=== PATIENT | female | born 1935 | race Caucasian/White ===

== ENCOUNTER 2016-11-07 21:12 | Emergency (ER) | payer MEDICARE, OTHER ==
[2016-11-07 21:46] LABS: #Lymphocytes 0.3 thou/uL (1.20-3.40); #Monocytes 0.3 thou/uL (0.11-0.59); #Neutrophils 4.4 thou/uL (1.40-6.50); %Basophils 0.6 % (0.0-1.0); %Monocytes 5.4 % (0.0-10.0); Hematocrit 34.6 % (36.0-47.0)
[2016-11-07 22:00] LABS: ALT (SGPT) 30 U/L (0-55); AST (SGOT) 29 U/L (5-34); Alkaline Phosphatase 81 U/L (40-150); Anion Gap 23 mmol/L (10-20); BUN (Urea Nitrogen) 28 mg/dL (9.8-20.1); Bilirubin, Total 0.2 mg/dL (0.2-1.2); Calc. Creatinine Clearance 0 mL/min (70-130); Carbon Dioxide 15 mmol/L (23-31); Chloride 91 mmol/L (98-107); Estimated GFR-MDRD 32; Globulin 3.2 g/dL (2.4-3.5); Magnesium 1.8 mg/dL (1.6-2.6)
[2016-11-07 22:09] LABS: Bilirubin Negative (Negative); Blood, Urine Small (Negative); Glucose, Urine (Dipstick) >=1000 mg/dL (Negative); Ketone, Urine Negative (Negative); Nitrite Negative (Negative); Protein, Urine (Dipstick) 30 mg/dL (Neg-Trace); Urobilinogen 0.2 mg/dL (0.2-1.0)
[2016-11-07 22:20] LABS: Bacteria/HPF 1+ HPF (None Seen); RBC/HPF 0-3 HPF (0-3); Squamous Epithelial 0-3 HPF (0-3); Yeast-All Forms 1+ HPF (None Seen)
[2016-11-07 22:44] LABS: Base Excess -3.7 mEq/L (-2 - +2); O2 Content (venous) 13.2 VOL% (12.5-17.5); pH (venous) 7.4 (7.34-7.37)
[2016-11-07] MEDS ORDERED: Sodium Chloride 0.9% 100 ML ONE (23:14)
[2016-11-07] MEDS ORDERED: cefTRIAXone\\ROCEPHIN 1 GM VIAL ONE ×2 (23:14→23:16)
[2016-11-07 23:49] LABS: Lactic Acid - Sepsis 5.2 mmol/L (0.5-2.2)
--- NOTE | 2016-11-07 23:56 | RAD ---
PORTABLE CHEST 11/07/16 An AP portable film at 2138 is presented with no prior films available for comparison. The heart is mildly enlarged but there are no congestive changes. Calcification is seen in the aorti c arch. There is a little blunting and haziness in the left costophrenic angle and left base. I can not rule out an early infiltrate and tiny effusion here. The right lung is relatively clear. The tra tg is midline. IMPRESSION: 1. Cardiomegaly and arteriosclerosis. 2. Possible small left basilar infiltrate and effusion. POS: HOME
--- NOTE | 2016-11-08 01:34 | PICIS ---
[facility] EMERGENCY RECORD COMMUNICATIONS COMMUNICATIONS: Physician, contacted/paged at [phone], Reason for notification transfer and admission, Dr Alexis accepts. (SunNov 08, 2016 00:46 JPIP) Physician, contacted/paged at [phone], Reason for notification transfer and admission, Dr Baez accepts. (SunNov 08, 2016 01:12 JPIP) TRIAGE (SunNov 07, 2016 21:20 SDIS) TRIAGE NOTES: POLYURIA, "HI" BGL STARTING TODAY. DIABETIC TYPE 2. HAS NOT MISSED MEDS. (SunNov 07, 2016 21:20 SDIS) PATIENT: NAME: Gracie Cifuentes, AGE: 81, GENDER: female, : Sun1935, TIME OF GREET: SunNov 07, 2016 21:13, PREFERRED LANGUAGE: Sinhala, ETHNICITY: Not or , ECODE BILLING MAP: [facility], SSN: [id number], Zip Code: [address], KG WEIGHT: 49.9 (est.), PHONE: , , , PERSON ID: [id number], PAYMENT: [place] [employer], PCP: DO BEAL JOHN SCOTT. (SunNov 07, 2016 21:20 SDIS) COMPLAINT: HYPERGLYCEMIA. (SunNov 07, 2016 21:20 SDIS) ADMISSION: URGENCY: 3 Urgent, ADMISSION SOURCE: Home, TRANSPORT: Walk-in, BED: TRIAGE. (SunNov 07, 2016 21:20 SDIS) TRIAGE SCREENING: Patient denies suicidal ideation, Patient denies presence of domestic violence. (21:21 SDIS) LMP: LMP: Menopause. (21:21 SDIS) TREATMENTS IN PROGRESS: Treatments given Prehospital: METFORMIN,. (21:21 SDIS) PROVIDERS: TRIAGE NURSE: Isabel De Jesus RN. (SunNov 07, 2016 21:20 SDIS) VITAL SIGNS: Resp 18, (Non-Labored), Pain 0, Time 11/07/2016 21:19. (21:19 SDIS) PREVIOUS VISIT ALLERGIES: IBUPROFEN. (SunNov 07, 2016 21:20 SDIS) IBUPROFEN. (21:21 SDIS) KNOWN ALLERGIES ibuprofen CURRENT MEDICATIONS azithromycin: TABLET : Strength - 250 mg : ORAL Patient Dose: 1 tab(s) Oral once a day. (22:13 SDIS) predniSONE: TABLET : Strength - 50 mg : ORAL Patient Dose: 50 mg Oral once a day.X 5 DAYS. (22:15 SDIS) ALPRAZolam: TABLET : Strength - 0.5 mg : ORAL Patient Dose: 0.5 mg Oral 3 times a day. (22:17 SDIS) aspirin: TABLET : Strength - 81 mg : ORAL &a-1R&a+25V*p+0X*p9921T*c202B*c15G*c2P*p-0X&a-25V&a+1R Name: Gracie Cifuentes : 1935 F81 MedRec: [id number] AcctNum: [id number] Prepared: SunNov 08, 2016 01:29 by Interface Page 1 of 16 pMD [facility] EMERGENCY RECORD Patient Dose: 81 mg Oral once a day. (22:18 SDIS) Caltrate 600 + D: TABLET, CHEWABLE : Strength - 600 mg calcium (1,500 mg)-800 unit : ORAL Patient Dose: 1 tab(s) Oral 2 times a day. (22:18 SDIS) lisinopril: TABLET : Strength - 20 mg : ORAL Patient Dose: 20 mg Oral once a day. (22:20 SDIS) lovastatin: TABLET : Strength - 10 mg : ORAL Patient Dose: 10 mg Oral once a day (at bedtime). (22:20 SDIS) metFORMIN: TABLET : Strength - 500 mg : ORAL Patient Dose: 1 tab(s) Oral 2 times a day. (22:20 SDIS) cefdinir: CAPSULE : Strength - 300 mg : ORAL Patient Dose: 300 mg Oral 2 times a day. (22:36 SDIS) VITAL SIGNS VITAL SIGNS: Resp: 18 (Non-Labored), Pain: 0, Time: 11/07/2016 21:19. (21:19 SDIS) BP: 166/88, Pulse: 106, Temp: 97..9 (Oral), O2 sat: 88 on Room Air, Time: 11/07/2016 21:22. (21:22 SDIS) BP: 139/76, Pulse: 90, Resp: 22 (Non-Labored), O2 sat: 92 on 2L Oxygen, Time: 11/07/2016 22:15. (22:15 SDIS) O2 sat: 93 on 2L Oxygen, Time: 11/07/2016 21:30. (21:30 SDIS) BP: 137/69, Pulse: 92, Resp: 24 (Non-Labored), Temp: 98.3 (Oral), Pain: 0, O2 sat: 94 on 2L Oxygen, Time: 11/08/2016 00:45. (SunNov 08, 2016 00:45 SDIS) NURSING ASSESSMENT: CARDIOVASCULAR (22:21 SDIS) CONSTITUTIONAL: Patient arrives ambulatory, Gait steady, History obtained from patient, Patient appears comfortable, Patient cooperative, Patient alert, Oriented to person, place and time, Skin warm, Skin dry, Skin normal in color, Mucous membranes pink, Mucous membranes moist, Patient complains of HYPERGLYCEMIA, SEE TRIAGE NOTE BY THIS RN. DENIES N/V. DENIES PAIN. REPORTS "HI" READING AT HOME. PT REPORTS H/O FEVER AND RECENT DX OF BRONCHITIS, GIVEN ABX BY PCP. CARDIOVASCULAR: Cardiovascular assessment findings include heart rate, tachycardic, Heart sounds normal, S1, S2. RESPIRATORY/CHEST: Breath sounds clear, Respiratory assessment findings include respiratory effort easy, Respirations regular, Conversing normally, Neck and chest exam findings include trachea midline, Chest expansion equal, Chest movement symmetrical, Associated with fever, SEVERAL DAYS PRIOR. NURSING ASSESSMENT: FALL RISK (22:23 SDIS) FALL RISK: Fall risk assessment findings include: no history of &a-1R&a+25V*p+0X*t0235L*c202B*c15G*c2P*p-0X&a-25V&a+1R Name: Gracie Cifuentes : 1935 F81 MedRec: [id number] AcctNum: [id number] Prepared: SunNov 08, 2016 01:29 by Interface Page 2 of 16 pMD [facility] EMERGENCY RECORD falls (0), No bed rest greater than 2 days (0), No use of level of consciousness altering agents with mentation or cognitive changes (0), No change in blood pressure (0), No sensory deficits (0), No impaired mobility (0), No neurologic diagnosis (0), No elimination problems (0), No confusion (0), Total score 0, No risk for fall. NURSING ASSESSMENT: SKIN (22:23 SDIS) SKIN: Skin assessment findings include skin warm, Skin dry, Skin normal in color, Notes: CDI. NURSING PROCEDURE: BEDSIDE SIRS TESTING (SunNov 08, 2016 01:16 SDIS) SCORES: Heart Rate 55-109 (0), Temp range 96.8-101.1 (0), respiratory rate 12-24 (0), Latest WBC 3-14.9 (0), Mental Status altered: no (0), Total SIRS Score 0. NURSING PROCEDURE: BEDSIDE TESTING PATIENT IDENTIFIER: Patient actively involved in identification process, Patient's identity verified by patient stating name, Patient's identity verified by patient stating date, Patient's identity verified by hospital ID bracelet. (21:30 SDIS) Patient actively involved in identification process, Patient's identity verified by patient stating name, Patient's identity verified by patient stating date, Patient's identity verified by hospital ID bracelet. (22:34 SDIS) Patient actively involved in identification process, Patient's identity verified by patient stating name, Patient's identity verified by patient stating date, Patient's identity verified by hospital ID bracelet. (23:32 SDIS) GLUCOSE: Glucose testing indicated for diabetic patient, Glucose testing indicated for hyperglycemia, Venous blood sample, Result (mg/dl) HI. (21:30 SDIS) Glucose testing indicated for diabetic patient, Glucose testing indicated for hyperglycemia, Venous blood sample, Result (mg/dl) 468. (22:34 SDIS) Glucose testing indicated for diabetic patient, Glucose testing indicated for hyperglycemia, Venous blood sample, Result (mg/dl) 370. (23:32 SDIS) FOLLOW-UP: After procedure, results given to Dr. MARSH. (21:30 SDIS) After procedure, results given to Dr. MARSH. (22:34 SDIS) After procedure, results given to Dr. MARSH. (23:32 SDIS) NURSING PROCEDURE: INTERIOR PANELER (21:23 SDIS) INTERIOR PANELER: Patient placed on teletypesetter monitor, Patient placed on non-invasive blood pressure monitor, with disposable blood pressure cuff applied, Patient placed on continuous pulse oximetry, Adult/pediatric oxisensor applied. NURSING PROCEDURE: IV (21:29 SDIS) &a-1R&a+25V*p+0X*d6972M*c202B*c15G*c2P*p-0X&a-25V&a+1R Name: Gracie Cifuentes : 1935 F81 MedRec: [id number] AcctNum: [id number] Prepared: SunNov 08, 2016 01:29 by Interface Page 3 of 16 [facility] EMERGENCY RECORD IV SITE 1: IV established, to the left antecubital, using an 18 gauge catheter, in one attempt, IV site prepped with CHLOROPREP, Saline lock established, Labs drawn at time of placement, labeled in the presence of the patient and sent to lab. SAFETY: Side rails up, Cart/Stretcher in lowest position, Call light within reach, Hospital ID band on. NURSING PROCEDURE: OXYGEN THERAPY (21:23 SDIS) OXYGEN THERAPY: 2L oxygen given, via nasal cannula applied, Applied by JOSEFINA. ORDER DETAILS Order Name: B type Natriuretic Peptide, Status: Active, Time: 22:38 11/07/2016, User: OSCAR, - Ordered for: DO Marsh Joseph, - Entered by: DO Marsh Joseph - Tue Nov 07, 2016 22:38, - Quantity: 1, Order Name: Basic Metabolic Panel, Status: Active, Time: 21:34 11/07/2016, User: OSCAR, - Ordered for: DO Marsh Joseph, - Entered by: DO Marsh Joseph - Tue Nov 07, 2016 21:34, - Quantity: 1, Order Name: BLOOD GLUCOSE MONITOR, Status: Done, Time: 21:31 11/07/2016, User: PERFECTO, - Ordered for: DO Marsh Joseph, - Entered by: DO Marsh Joseph - Tue Nov 07, 2016 21:22, - Quantity: 1, Order Name: INTERIOR PANELER ED, Status: Done, Time: 21:51 11/07/2016, User: PERFECTO, - Ordered for: DO Marsh Joseph, - Entered by: DO Marsh Joseph - Tue Nov 07, 2016 21:34, - Quantity: 1, Order Name: Cardiac Profile w/CKMB & Troponin - I, Status: Active, Time: 21:34 11/07/2016, User: OSCAR, - Ordered for: DO Marsh Joseph, - Entered by: DO Marsh Joseph - Tue Nov 07, 2016 21:34, - Quantity: 1, Order Name: CBC with Differential, Status: Active, Time: 21:34 11/07/2016, User: OSCAR, - Ordered for: DO Marsh Joseph, - Entered by: DO Marsh Joseph - Tue Nov 07, 2016 21:34, - Quantity: 1, Order Name: Comprehensive Metabolic Panel, Status: Active, Time: 21:34 11/07/2016, User: OSCAR, - Ordered for: DO Marsh Joseph, - Entered by: DO Marsh Joseph - Tue Nov 07, 2016 21:34, - Quantity: 1, Order Name: Culture, Blood, Status: Active, Time: 22:48 11/07/2016, User: OSCAR, &a-1R&a+25V*p+0X*z3276V*c202B*c15G*c2P*p-0X&a-25V&a+1R Name: Gracie Cifuentes : 1935 F81 MedRec: [id number] AcctNum: [id number] Prepared: SunNov 08, 2016 01:29 by Interface Page 4 of 16 [facility] EMERGENCY RECORD - Ordered for: DO Marsh Joseph, - Entered by: DO Marsh Joseph - Tue Nov 07, 2016 22:48, - Quantity: 1, Order Name: Culture, Urine, Status: Active, Time: 22:48 11/07/2016, User: OSCAR, - Ordered for: DO Marsh Joseph, - Entered by: DO Marsh Joseph - Tue Nov 07, 2016 22:48, - Quantity: 1, Order Name: EKG 12 Lead in Emergency Room, Status: Active, Time: 23:26 11/07/2016, User: OSCAR, - Ordered for: DO Marsh Joseph, - Entered by: DO Marsh Joseph - Tue Nov 07, 2016 23:26, - Quantity: 1, Order Name: ERRT * Smal Vol Neb Initial Trmt, Status: Active, Time: 23:55 11/07/2016, User: OSCAR, - Ordered for: DO Marsh Joseph, - Entered by: DO Marsh Joseph - maria isabel Nov 07, 2016 23:55, - Quantity: 1, Order Name: ERRT Oxygen Usage ER, Status: Active, Time: 21:34 11/07/2016, User: OSCAR, - Ordered for: DO Marsh Joseph, - Entered by: DO Marsh Joseph - maria isabel Nov 07, 2016 21:34, - Quantity: 1, Order Name: ERRT Pulse Oximeter ER, Status: Active, Time: 21:34 11/07/2016, User: OSCAR, - Ordered for: DO Marsh Joseph, - Entered by: DO Marsh Joseph - maria isabel Nov 07, 2016 21:34, - Quantity: 1, Order Name: Influenza A&B Ag Screen, Status: Active, Time: 21:58 11/07/2016, User: OSCAR, - Ordered for: DO Marsh Joseph, - Entered by: DO Marsh Joseph - maria isabel Nov 07, 2016 21:58, - Quantity: 1, Order Name: Lactic Acid with repeat, Status: Active, Time: 22:48 11/07/2016, User: OSCAR, - Ordered for: DO Marsh Joseph, - Entered by: DO Marsh Joseph - maria isabel Nov 07, 2016 22:48, - Quantity: 1, Order Name: Magnesium, Status: Active, Time: 21:34 11/07/2016, User: OSCAR, - Ordered for: DO Marsh Joseph, - Entered by: DO Marsh Joseph - maria isabel Nov 07, 2016 21:34, - Quantity: 1, Order Name: SALINE LOCK, Status: Done, Time: 21:51 11/07/2016, User: PERFECTO, - Ordered for: DO Marsh Joseph, - Entered by: DO Marsh Joseph - maria isabel Nov 07, 2016 21:34, - Quantity: 1, Order Name: Urinalysis w/ Rflx Microscopic, Status: Active, Time: 21:34 11/07/2016, User: OSCAR, &a-1R&a+25V*p+0X*g9334Q*c202B*c15G*c2P*p-0X&a-25V&a+1R Name: Gracie Cifuentes : 1935 F81 MedRec: [id number] AcctNum: [id number] Prepared: SunNov 08, 2016 01:29 by Interface Page 5 of 16 pMD [facility] EMERGENCY RECORD - Ordered for: DO Marsh Joseph, - Entered by: DO Marsh Joseph - Tue Nov 07, 2016 21:34, - Quantity: 1, Order Name: VBG (For BUR,MAD, and DICK), Status: Active, Time: 22:11 11/07/2016, User: OSCAR, - Ordered for: DO Marsh Joseph, - Entered by: DO Marsh Joseph - Tue Nov 07, 2016 22:11, - Quantity: 1, Order Name: XR Chest 1 View Portable, Status: Active, Time: 21:34 11/07/2016, User: OSCAR, - Ordered for: DO Marsh Joseph, - Entered by: DO Marsh Joseph - Tue Nov 07, 2016 21:34, - Quantity: 1. MEDICATION ADMINISTRATION SUMMARY Drug Name: DuoNeb, Dose Ordered: 3 mL, Route: Nebulize, Status: Given, Time: 00:04 11/08/2016, Drug Name: Normal Saline, Dose Ordered: 500 mL, Route: IV Fluid Infusion, Status: Given, Time: 00:04 11/08/2016, Drug Name: Normal Saline, Dose Ordered: 250 mL/hr, Route: IV Fluid Infusion, Status: Given, Time: 23:37 11/07/2016, Drug Name: Rocephin injection, Dose Ordered: 2 g, Route: IV Piggy Back, Status: Given, Time: 23:22 11/07/2016, Drug Name: HumuLIN R, Dose Ordered: 10 units, Route: IV Push, Status: Given, Time: 21:50 11/07/2016, Drug Name: Normal Saline, Dose Ordered: 1000 mL/hr, Route: IV Fluid Infusion, Status: Given, Time: 21:45 11/07/2016, Detailed record available in Medication Service section. MEDICATION SERVICE DuoNeb: Order: DuoNeb (ipratropium bromide/albuterol sulfate) - Dose: 3 mL : Nebulize Schedule: Now Ordered by: Keegan Marsh DO Entered by: Keegan aMrsh DO SunNov 07, 2016 23:55 , Acknowledged by: Isabel De Jesus RN SunNov 07, 2016 23:58 Documented as given by: Isabel De Jesus RN SunNov 08, 2016 00:04 Patient, Medication, Dose, Route and Time verified prior to administration. Site: Medication administered via Hand-held nebulizer, With oxygen, Correct patient, time, route, dose and medication confirmed prior to administration, Patient advised of actions and side-effects prior to administration, Allergies confirmed and medications reviewed prior to administration. HumuLIN R: Order: HumuLIN R (insulin regular, human) - Dose: 10 units : IV Push Schedule: Now Ordered by: Keegan Marsh DO Entered by: Keegan Marsh DO SunNov 07, 2016 21:36 , &a-1R&a+25V*p+0X*o1259D*c202B*c15G*c2P*p-0X&a-25V&a+1R Name: Gracie Cifuentes : 1935 F81 MedRec: [id number] AcctNum: [id number] Prepared: SunNov 08, 2016 01:29 by Interface Page 6 of 16 pMD [facility] EMERGENCY RECORD Acknowledged by: Isabel De Jesus RN SunNov 07, 2016 21:43, Co-signed by: Zamzam Oneil RN SunNov 07, 2016 21:49, Co-signed by: Zamzam Oneil RN SunNov 07, 2016 21:49 Documented as given by: Isabel De Jesus RN SunNov 07, 2016 21:50 Patient, Medication, Dose, Route and Time verified prior to administration. IV SITE #1 IVP, initial medication, Slowly, Connections checked prior to administration, Line traced prior to administration, Catheter placement confirmed via flush prior to administration, IV site without signs or symptoms of infiltration during medication administration, No swelling during administration, No drainage during administration, IV flushed after administration, Correct patient, time, route, dose and medication confirmed prior to administration, Patient advised of actions and side-effects prior to administration, Allergies confirmed and medications reviewed prior to administration. Normal Saline: Order: Normal Saline (0.9 % sodium chloride) - Dose: 1000 mL/hr : IV Fluid Infusion Schedule: Now Ordered by: Keegan Marsh DO Entered by: Keegan Marsh DO SunNov 07, 2016 21:35 , Acknowledged by: Isabel De Jesus RN Nov 07, 2016 21:35 Documented as given by: Isabel De Jesus RN Nov 07, 2016 21:45 Patient, Medication, Dose, Route and Time verified prior to administration. IV SITE #1 IV fluids established for hydration, IV SITE #1 into left antecubital, IV SITE #1 1st bag hung, amount 1 Liter hung, IV SITE #1 bolus of 1000 ml established, IV SITE #1 Rate of bolus, wide open, via primary tubing, Connections checked prior to administration, Line traced prior to administration, Catheter placement confirmed via flush prior to administration, IV site without signs or symptoms of infiltration during medication administration, No swelling during administration, No drainage during administration, IV flushed after administration, Correct patient, time, route, dose and medication confirmed prior to administration, Patient advised of actions and side-effects prior to administration, Allergies confirmed and medications reviewed prior to administration. Normal Saline: Order: Normal Saline (0.9 % sodium chloride) - Dose: 250 mL/hr : IV Fluid Infusion Ordered by: Keegan Marsh DO Entered by: Keegan Marsh DO SunNov 07, 2016 23:27 , Acknowledged by: Isabel De Jesus RN SunNov 07, 2016 23:33 Documented as given by: Isabel De Jesus RN SunNov 07, 2016 23:37 Patient, Medication, Dose, Route and Time verified prior to administration. IV SITE #1 IV fluids established for hydration, IV SITE #1 into left antecubital, IV SITE #1 2nd bag hung, IV SITE #1 Rate of infusion (non-bolus) Infusing at 250 ml/hr, via primary tubing, IV SITE #1 on IV pump, Connections checked prior to administration, Line traced prior to administration, Catheter placement confirmed via flush prior to administration, IV site without signs or symptoms of infiltration &a-1R&a+25V*p+0X*p7886Z*c202B*c15G*c2P*p-0X&a-25V&a+1R Name: Gracie Cifuentes : 1935 F81 MedRec: [id number] AcctNum: [id number] Prepared: SunNov 08, 2016 01:29 by Interface Page 7 of 16 pMD [facility] EMERGENCY RECORD during medication administration, No swelling during administration, No drainage during administration, IV flushed after administration, Correct patient, time, route, dose and medication confirmed prior to administration, Patient advised of actions and side-effects prior to administration, Allergies confirmed and medications reviewed prior to administration. Normal Saline: Order: Normal Saline (0.9 % sodium chloride) - Dose: 500 mL : IV Fluid Infusion Schedule: Bolus Ordered by: Keegan Marsh DO Entered by: Keegan Marsh DO SunNov 07, 2016 23:50 , Acknowledged by: Isabel De Jesus RN SunNov 07, 2016 23:50 Documented as given by: Isabel De Jesus RN SunNov 08, 2016 00:04 Patient, Medication, Dose, Route and Time verified prior to administration. IV SITE #1 IV fluids established for hydration, IV SITE #1 into left antecubital, IV SITE #1 bolus of 500 ml established, via primary tubing, IV SITE #1 on IV pump, Connections checked prior to administration, Line traced prior to administration, Catheter placement confirmed via flush prior to administration, IV site without signs or symptoms of infiltration during medication administration, No swelling during administration, No drainage during administration, IV flushed after administration, Correct patient, time, route, dose and medication confirmed prior to administration, Patient advised of actions and side-effects prior to administration, Allergies confirmed and medications reviewed prior to administration. Rocephin injection: Order: Rocephin injection (ceftriaxone sodium) - Dose: 2 g : IV Piggy Back Schedule: Now Ordered by: Keegan Marsh DO Entered by: Keegan Marsh DO SunNov 07, 2016 22:47 , Acknowledged by: Isabel De Jesus RN SunNov 07, 2016 22:47 Documented as given by: Isabel De Jesus RN SunNov 07, 2016 23:22 Patient, Medication, Dose, Route and Time verified prior to administration. IV SITE #1 IVPB or drip, subsequent infusion, IVPB mixed in: 100ml, Fluid: 0.9NS, via primary tubing, on an IV pump, at 200 ml/hr, Connections checked prior to administration, Line traced prior to administration, Catheter placement confirmed via flush prior to administration, IV site without signs or symptoms of infiltration during medication administration, No swelling during administration, No drainage during administration, IV flushed after administration, Correct patient, time, route, dose and medication confirmed prior to administration, Patient advised of actions and side-effects prior to administration, Allergies confirmed and medications reviewed prior to administration, UC SENT. HPI DIABETES (21:56 JPIP) CHIEF COMPLAINT: Patient presents for evaluation of hyperglycemia, Pre-hospital or triage blood sugar greater &a-1R&a+25V*p+0X*k1187D*c202B*c15G*c2P*p-0X&a-25V&a+1R Name: Gracie Cifuentes : 1935 F81 MedRec: [id number] AcctNum: [id number] Prepared: SunNov 08, 2016 01:29 by Interface Page 8 of 16 pMD [facility] EMERGENCY RECORD than 400, Patient presents for evaluation of states he machine at home only showed "hi". HISTORIAN: History provided by patient, History provided by patient's family, grand daughter. LOCATION: Symptoms are generalized. SEVERITY: Current severity of pain rated as 0/10. TIME COURSE: Sudden onset of symptoms, Date and time of onset was today, There has been no change in the patient's symptoms over time, are constant. ASSOCIATED WITH: No associated history of chest pain, No associated decrease in oral intake, Associated with fever, Measured maximum temperature 102-102.9 degrees, Associated with illness, Associated with polyuria, Associated with upper respiratory infection, No associated vomiting. EXACERBATED BY: Patient's condition exacerbated by nothing. RELIEVED BY: Patient's condition relieved by nothing. ROS (21:58 JPIP) CONSTITUTIONAL: Historian reports chills, reports fever. measured temperature of 102, Historian reports malaise. ENT: Historian denies sore throat. CARDIOVASCULAR: Historian denies chest pain. RESPIRATORY: Historian reports cough, reports shortness of breath, denies sputum, denies wheezing. URI symptoms. states she's on ABX for bronchitis now. GI: Historian denies vomiting. GENITOURINARY FEMALE: Historian reports frequency. SKIN: Historian denies rash, denies skin changes, denies skin lesions. NEUROLOGIC: Historian denies confusion, denies dizziness, denies lethargy. ENDOCRINE: Historian reports polyuria. NOTES: All systems reviewed, negative except as described above. PAST MEDICAL HISTORY MEDICAL HISTORY: Flu vaccine up to date, Tetanus immunization up to date, Pneumococcal vaccine up to date, Past medical history includes history of diabetes, Type II, Past medical history includes gastrointestinal disease, gastroesophageal reflux disease, Past medical history includes history of hyperlipidemia, high cholesterol, currently being treated, Past medical history includes history of hypertension, which has been treated, Patient is compliant. (21:21 SDIS) FEMALE SURGICAL HISTORY: Surgical history of appendectomy, Surgical history of tonsillectomy. OVARIAN CYST REMOVAL. (21:21 SDIS) PSYCHIATRIC HISTORY: Psychiatric history includes, anxiety. (21:21 SDIS) SOCIAL HISTORY: Patient denies alcohol use, Patient denies &a-1R&a+25V*p+0X*b3885V*c202B*c15G*c2P*p-0X&a-25V&a+1R Name: Gracie Cifuentes : 1935 F81 MedRec: [id number] AcctNum: [id number] Prepared: SunNov 08, 2016 01:29 by Interface Page 9 of 16 pMD [facility] EMERGENCY RECORD drug use, Patient has no smoking history, Lives at home, with family. (21:21 SDIS) NOTES: Nursing records reviewed, Medication list reviewed. (22:10 JPIP) PHYSICAL EXAM (21:59 JPIP) CONSTITUTIONAL: Vital Signs Reviewed, Patient afebrile, Pulse, tachycardic, Blood pressure normal bilaterally, Respiratory rate normal, Patient appears, uncomfortable, Patient alert and oriented to person, place and time, Nursing notes reviewed, sat 88% cachectic. HEAD: Head exam included findings of head atraumatic, normocephalic. EYES: Eye exam included findings of eyelids normal to inspection, Conjunctiva normal, Sclera normal, no periorbital ecchymosis, no periorbital edema, no periorbital erythema. ENT: Pharynx exam normal, Uvula exam normal, Mouth exam included findings of, mucous membranes tacky. NECK: Neck exam included findings of normal range of motion, Trachea midline, no meningeal signs, no jugular venous distention, no cervical adenopathy. RESPIRATORY CHEST: Respiratory exam included findings of no respiratory distress, Breath sounds not clear, No wheezing, Rales present, to bilateral lower lobes, No rhonchi, Breath sounds not absent, Breath sounds not diminished. CARDIOVASCULAR: Cardiovascular exam included findings of, rate tachycardic, rhythm regular, Heart sounds normal, no murmurs, no rub. ABDOMEN FEMALE: Abdominal exam included findings of abdomen nontender, Liver normal, Spleen normal, no distension, no mass, no pulsatile masses, no peritoneal signs, no rigidity, no guarding, no rebound. BACK: no costovertebral angle tenderness. UPPER EXTREMITY: Upper extremity exam included findings of inspection normal, Range of motion, Limited to bilateral hands, MCP subluxations. LOWER EXTREMITY: no edema. NEURO: [place] coma scale 15, no focal motor deficits. SKIN: Skin exam included findings of skin warm, dry, and normal in color. PSYCHIATRIC: Psychiatric exam included findings of patient oriented to person place and time, Normal affect. LAB INTERPRETATION (22:36 JP) INTERPRETATION: I reviewed the lab results, All labs normal except as noted below, CBC abnormal, Hemoglobin decreased, Hematocrit decreased, Neutrophils elevated, Chemistry abnormal, Sodium decreased, Chloride decreased, Glucose &a-1R&a+25V*p+0X*v1675R*c202B*c15G*c2P*p-0X&a-25V&a+1R Name: Gracie Cifuentes : 1935 F81 MedRec: [id number] AcctNum: [id number] Prepared: SunNov 08, 2016 01:29 by Interface Page 10 of 16 pMD [facility] EMERGENCY RECORD elevated, BUN elevated, Creatinine elevated, Bicarbonate decreased, Magnesium normal, AG 23, Cardiac enzymes normal, Liver functions normal, Urinalysis abnormal, positive for leukocytes, positive for bacteria, ketones negative, positive for glucose, Lactate abnormal-elevated, elevated, 5.2, mag 1.8. EVENTS TRANSFER: Triage to Emergency Triage. (SunNov 07, 2016 21:20 SDIS) Emergency Triage to Emergency Room -04. (21:20 SDIS) Removed from Emergency Emergency Room -04. (SunNov 08, 2016 01:27 SDIS) RADIOLOGYINTERPRETATION (23:46 JPIP) CHEST: Films of the chest show, interstitial infiltrate, to the left lower, no pneumothorax, no hemothorax, no pleural effusion. MEDICAL SALES SPECIALIST: Preliminary review of x-rays by, ED Physician. EKG INTERPRETATION (23:42 JPIP) MONITOR STRIP: engine monitor strip interpreted by Emergency Department Physician, Monitor strip shows normal sinus rhythm, with no ectopics. 12 LEAD EKG INTERPRETATION: 12 lead EKG interpreted by Emergency Department Physician at time of study, 12 lead EKG shows normal sinus rhythm, Rate (beats per minute): 85, with no ectopics, Interpretation: normal EKG, Conduction normal, ST segments normal, T waves normal, [place] normal, Clinical impression: Normal EKG. O2SAT INTERPRETATION (21:34 JPIP) O2SAT: Continuous pulse oximetry, Oxygen saturation 88%, on room air, Oxygen saturation interpretation: Hypoxic, Intervention required: Oxygen administration. DOCTOR NOTES (22:35 JPIP) TEXT: Patient is on Zithromax and cefdinir for her bronchitis. PROBLEM LIST No recorded problems DIAGNOSIS (SunNov 08, 2016 01:14 JPIP) FINAL: PRIMARY: left lower lobe pneumonia, ADDITIONAL: Acute cystitis without hematuria, DKA, Dyspnea, hypoxia, Sepsis. DISPOSITION PATIENT: Disposition Type: Transfer, Disposition: Transfer to [facility], Disposition Transport: Ambulance, Condition: Improved. (Sun &a-1R&a+25V*p+0X*p8701K*c202B*c15G*c2P*p-0X&a-25V&a+1R Name: Gracie Cifuentes : 1935 F81 MedRec: [id number] AcctNum: [id number] Prepared: SunNov 08, 2016 01:29 by Interface Page 11 of 16 pMD [facility] EMERGENCY RECORD Nov 08, 2016 01:14 JPIP) Patient left the department. (SunNov 08, 2016 01:27 SDIS) PRESCRIPTION No recorded prescriptions IMAGING *EKG: Image captured from scanner. (SunNov 08, 2016 00:08 SDIS) CONSENTS: Image captured from scanner. (SunNov 08, 2016 01:16 MVIL) *MEMORANDUM OF TRANSFER: Image captured from scanner. (SunNov 08, 2016 01:16 SDIS) PHYSICIAN CERTIFICATION STATEMENT: Image captured from scanner. (SunNov 08, 2016 01:17 SDIS) RESULTS RADIOLOGY: XR Chest 1 View Portable Observe DT: SunNov 07, 2016 21:38, CXRP PORTABLE CHEST 11/07/16 An AP portable film at 2138 is presented with no prior films available for comparison. The heart is mildly enlarged but there are no congestive changes. Calcification is seen in the aorti c arch. There is a little blunting and haziness in the left costophrenic angle and left base. I can not rule out an early infiltrate and tiny effusion here. The right lung is relatively clear. The tra tg is midline. IMPRESSION: 1. Cardiomegaly and arteriosclerosis. 2. Possible small left basilar infiltrate and effusion. POS: HOME . (23:59 JPIP) LABORATORY: CBC with Differential Collection DT: SunNov 07, 2016 21:42, White Blood Cell (WBC) Count 5.0 thou/uL, Range (4.8-10.8), *Red Blood Cell (RBC) Count 3.60 - L mill/uL, Range (4.20-5.40), *Hemoglobin 11.0 - L g/dL, Range (12.0-16.0), *Hematocrit 34.6 - L %, Range (36.0-47.0), Mean Corpuscular Volume 96.0 fl, Range (81.0-99.0), Mean Corpuscular Hemoglobin 30.5 pg, Range (27.0-31.0), *Mean Corpuscular HGB CONC 31.8 - L g/dL, Range (32.0-36.0), RBC Distribution Width 11.6 %, Range (11.5-14.5), &a-1R&a+25V*p+0X*b7068E*c202B*c15G*c2P*p-0X&a-25V&a+1R Name: Gracie Cifuentes : 1935 F81 MedRec: [id number] AcctNum: [id number] Prepared: SunNov 08, 2016 01:29 by Interface Page 12 of 16 pMD [facility] EMERGENCY RECORD Platelet Count 282 thou/uL, Range (130-400), *Mean Platelet Volume 6.0 - L fL, Range (7.4-10.4), *%Neutrophils 87.9 - H %, Range (42.0-75.0), *%Lymphocytes 6.2 - L %, Range (21.0-51.0), %Monocytes 5.4 %, Range (0.0-10.0), %Eosinophils 0.0 %, Range (0.0-10.0), %Basophils 0.6 %, Range (0.0-1.0), #Neutrophils 4.4 thou/uL, Range (1.40-6.50), *#Lymphocytes 0.3 - L thou/uL, Range (1.20-3.40), #Monocytes 0.3 thou/uL, Range (0.11-0.59), #Eosinphils 0.0 thou/uL, Range (0.0-0.7), #Basophils 0.0 thou/uL, Range (0.0-0.2). (21:52 [facility]) Magnesium Collection DT: SunNov 07, 2016 21:42, Magnesium 1.8 mg/dL, Range (1.6-2.6), NOTE: Higher values can be expected in females during menses . (22:10 [facility]) Comprehensive Metabolic Panel Collection DT: SunNov 07, 2016 21:42, Critical Call Chemistry [email or web address] , Refer to Critical Value designated by an *L or *H , *Sodium 125 - L mmol/L, Range (136-145), Potassium 4.4 mmol/L, Range (3.5-5.1), *Chloride 91 - L mmol/L, Range (98-107), *Carbon Dioxide 15 - L mmol/L, Range (23-31), *Anion Gap 23 - H mmol/L, Range (10-20), *BUN (Urea Nitrogen) 28 - H mg/dL, Range (9.8-20.1), *Creatinine 1.56 - H mg/dL, Range (0.6-1.1), Estimated GFR-MDRD 32 , Reference Range for Estimated GFR: Greater than 90, mL/min/1.73 m2 NOTE: The MDRD equation has not been validated for use, with the elderly (over 70 years of age), women, patients with, serious comorbid condition or persons with extremes of body size, muscle, mass, or nutritional status. , *Glucose 756 - *H mg/dL, Range (83-110), Critical value!, Calcium 9.0 mg/dL, Range (7.8-10.44), Bilirubin, Total 0.2 mg/dL, Range (0.2-1.2), Protein, Total 7.0 g/dL, Range (5.8-8.1), NOTE: Plasma values are generally 0.3 to 0.5 g/dL higher than serum values, due to the presence of fibrinogen. , Albumin 3.8 g/dL, Range (3.4-4.8), Globulin 3.2 g/dL, Range (2.4-3.5), Alb/Glob Ratio 1.2 g/dL, Range (1.2-2.2), Alkaline Phosphatase 81 U/L, Range (40-150), AST (SGOT) 29 U/L, Range (5-34), ALT (SGPT) 30 U/L, Range (0-55). (22:10 [facility]) Cardiac Profile w/CKMB & TropI Collection DT: SunNov 07, 2016 21:42, CKMB 2.5 ng/mL, Range (0-6.6), Troponin I 0.010 ng/mL, Range (< 0.028), Reference Range &a-1R&a+25V*p+0X*e5608Z*c202B*c15G*c2P*p-0X&a-25V&a+1R Name: Gracie Cifuentes : 1935 F81 MedRec: [id number] AcctNum: [id number] Prepared: SunNov 08, 2016 01:29 by Interface Page 13 of 16 pMD [facility] EMERGENCY RECORD , 0.00 - 0.028 ng/mL Negative 0.029 - 0.29 ng/mL , Indeterminate Greater or Equal to 0.3 ng/mL Strongly suggests [place] , . (22:10 JPIP) Urine Microscopic Collection DT: SunNov 07, 2016 22:06, RBC/HPF 0-3 HPF, Range (0-3), *WBC/HPF 7-10 - H HPF, Range (0-3), Squamous Epithelial 0-3 HPF, Range (0-3), *Bacteria/HPF 1+ - H HPF, Range (None Seen), *Yeast-All Forms 1+ - H HPF, Range (None Seen). (22:22 JPIP) Urinalysis w/ Rflx Microscopic Collection DT: SunNov 07, 2016 22:06, Color Straw , Range (Yellow), Clarity Hazy , Range (Clear), Specific [place]ougar, Urine 1.022 , Range (1.002-1.036), pH, Urine 5.5 , Range (5.0-9.0), *Leukocyte Trace - H , Range (Negative), Nitrite Negative , Range (Negative), *Protein, Urine (Dipstick) 30 - H mg/dL, Range (Neg-Trace), *Glucose, Urine (Dipstick) >=1000 - H mg/dL, Range (Negative), Ketone, Urine Negative mg/dL, Range (Negative), Urobilinogen 0.2 mg/dL, Range (0.2-1.0), Bilirubin Negative , Range (Negative), *Blood, Urine Small - H , Range (Negative). (22:22 JPIP) Urine Microscopic Collection DT: SunNov 07, 2016 22:06, RBC/HPF 0-3 HPF, Range (0-3), *WBC/HPF 7-10 - H HPF, Range (0-3), Squamous Epithelial 0-3 HPF, Range (0-3), *Bacteria/HPF 1+ - H HPF, Range (None Seen), *Yeast-All Forms 1+ - H HPF, Range (None Seen). (22:22 JPIP) Urinalysis w/ Rflx Microscopic Collection DT: SunNov 07, 2016 22:06, Color Straw , Range (Yellow), Clarity Hazy , Range (Clear), Specific [place]oug[place], Urine 1.022 , Range (1.002-1.036), pH, Urine 5.5 , Range (5.0-9.0), *Leukocyte Trace - H , Range (Negative), Nitrite Negative , Range (Negative), *Protein, Urine (Dipstick) 30 - H mg/dL, Range (Neg-Trace), *Glucose, Urine (Dipstick) >=1000 - H mg/dL, Range (Negative), Ketone, Urine Negative mg/dL, Range (Negative), Urobilinogen 0.2 mg/dL, Range (0.2-1.0), Bilirubin Negative , Range (Negative), *Blood, Urine Small - H , Range (Negative). (22:22 [facility]) MICROBIOLOGY: Influenza A&B Ag Screen: [id number] Collection DT: SunNov 07, 2016 22:10, See comment below , @ ER ROOM#: - @Previously received by LAB.AD on 11/07/16 at 2223. , @Unreceived by LAB.AD on 11/07/16 at 2226. Source: Nasal swab &a-1R&a+25V*p+0X*k5786V*c202B*c15G*c2P*p-0X&a-25V&a+1R Name: Gracie Cifuentes : 1935 F81 MedRec: [id number] AcctNum: [id number] Prepared: Julian Nov 08, 2016 01:29 by Interface Page 14 of 16 pMD [facility] EMERGENCY RECORD Spec Desc: , Influenza A Antigen: NEGATIVE for the , presence of , INFLUENZA A Antigen , Influenza B Antigen: NEGATIVE for the , presence of , INFLUENZA B Antigen , The rapid Flu A&B test can distinguish between influenza A , Influenza A&B Ag Screen See comment below , and B viruses, but it does not differentiate influenza , Influenza A&B Ag Screen See comment below , subtypes. , Influenza A&B Ag Screen See comment below , Influenza A&B Ag Screen See comment below , Influenza A&B Ag Screen See comment below , Influenza A&B Ag Screen See comment below , Influenza A&B Ag Screen See comment below , Influenza A&B Ag Screen See comment below , established. For example: this test cannot distinguish , Influenza A&B Ag Screen See comment below , influenza infections caused by novel H1N1 influenza A , Influenza A&B Ag Screen See comment below , viruses versus seasonal influenza A viruses. , Influenza A&B Ag Screen See comment below , , Influenza A&B Ag Screen See comment below , A negative result does not exclude influenza virus , Influenza A&B Ag Screen See comment below , infection; therefore, if more conclusive testing is desired, , Influenza A&B Ag Screen See comment below , follow up confirmatory testing is warranted., Influenza A&B Ag Screen See comment below . (22:46 JPIP) LABORATORY: Blood Gas-Venous Collection DT: SunNov 07, 2016 22:15, *pH (venous) 7.400 - H , Range (7.34-7.37), *CO2 Tension (PvCO2) 34.0 - *L mmHg, Range (44-46), Results called to SHEEBA, and verbally verified through read-back by:, []LAB.AD AT 2244 @ENTER PERSON CALLED IN THE BRACKETS. by: Edilia Cabrera on 11/07/16 at 2244., *O2 Tension (PvO2) 69.0 - H mmHg, Range (38-42), *Actual Bicarbonate (HCO3v) 21 - L mEq/L, Range (24-30), Base Excess -3.7 mEq/L, Range (-2 - +2), *O2 Saturation-measured venous 92.0 - H %, Range (60-80), *Hematocrit-VBG 31.0 - L %, Range (35-47), *Hemoglobin (Hb) 10.2 - L g/dL, Range (11.7-16.1), O2 Content (venous) 13.2 VOL%, Range (12.5-17.5). (22:51 JPIP) Accuchek Collection DT: SunNov 07, 2016 22:51, *Accuchek 467 - H mg/dL, Range (70-110). (22:58 JPIP) B type Natriuretic Peptide Collection DT: SunNov 07, 2016 22:47, *B type Natriuretic Peptide 130.7 - H pg/mL, Range (0-100). &a-1R&a+25V*p+0X*i8106N*c202B*c15G*c2P*p-0X&a-25V&a+1R Name: Gracie Cifuentes : 1935 F81 MedRec: [id number] AcctNum: [id number] Prepared: SunNov 08, 2016 01:29 by Interface Page 15 of 16 pMD [facility] EMERGENCY RECORD (23:09 JPIP) Accuchek Collection DT: SunNov 07, 2016 23:40, *Accuchek 370 - H mg/dL, Range (70-110). (23:46 JPIP) Lactic Acid for Sepsis Collection DT: SunNov 07, 2016 23:34, Critical Call Chem-Lactate [email or web address] , *Lactic Acid - Sepsis 5.2 - *H mmol/L, Range (0.5-2.2), Critical value!. (23:51 JPIP) Pham: ROMELIP=DO Marsh Joseph MVIL=ABRAN Oneil, Zamzam SDIS=ABRAN De Jesus, Isabel &a-1R&a+25V*p+0X*q7420L*c202B*c15G*c2P*p-0X&a-25V&a+1R Name: Gracie Cifuentes : 1935 F81 MedRec: [id number] AcctNum: [id number] Prepared: SunNov 08, 2016 01:29 by Interface Page 16 of 16 pMD MTDD
== END 2016-11-08 01:27 | disposition short-term general hospital (02) ==
LOC: BURERS 21:12
DX: E13.10 Other specified diabetes mellitus with ketoacidosis without coma (principal); N30.00 Acute cystitis without hematuria; J18.9 Pneumonia, unspecified organism; A41.9 Sepsis, unspecified organism; K21.9 Gastro-esophageal reflux disease without esophagitis
CPT/HCPCS: 36415; 36416; 71010; 80053; 81003; 81015; 82553; 82805; 83605; 83735; 83880; 84484; 85025; 87040; 87086; 93005; 94640; 94760; 96361; 96365; 96375; J0696; J7050; J7620

== ENCOUNTER 2024-07-01 13:36 | Outpatient (CLI) | payer OTHER | END 2024-07-01 13:37 | disposition home or self-care (01) | LOC: BURRAD 13:36 | PROVIDERS: ATTEND Nurse Practitioner Adult Health | DX: Z04.3 Encounter for examination and observation following other accident (principal); R93.7 Abnormal findings on diagnostic imaging of other parts of musculoskeletal system; W19.XXXA Unspecified fall, initial encounter ==

== ENCOUNTER 2024-09-22 12:26 | Emergency (ER) | payer MEDICARE ==
[2024-09-22 12:49] LABS: #Basophils 0.1 thou/uL (0.0-0.2); #Lymphocytes 1.2 thou/uL (1.20-3.40); #Monocytes 0.9 thou/uL (0.11-0.59); #Neutrophils 9.3 thou/uL (1.40-6.50); %Basophils 1.2 % (0.0-1.0); %Eosinophils 0.1 % (0.0-10.0); %Lymphocytes 10.3 % (21.0-51.0); %Monocytes 7.7 % (0.0-10.0); %Neutrophils 80.8 % (42.0-75.0); Hematocrit 30.4 % (36.0-47.0); Hemoglobin 9.9 g/dL (12.0-16.0); Mean Corpuscular HGB CONC 32.7 g/dL (32.0-36.0); Mean Corpuscular Hemoglobin 27.7 pg (27.0-31.0); Mean Corpuscular Volume 84.5 fl (78.0-98.0); Mean Platelet Volume 5.3 fL (7.4-10.4); Platelet Count 362 10x3/uL (130-400); RBC Distribution Width 13.2 % (11.5-14.5); Red Blood Cell (RBC) Count 3.59 mill/uL (4.20-5.40); White Blood Cell (WBC) Count 11.5 10x3/uL (4.8-10.8)
[2024-09-22 13:03] LABS: ALT (SGPT) 18 U/L (8-55); AST (SGOT) 20 U/L (5-34); Albumin 3.8 g/dL (3.4-4.8); Alkaline Phosphatase 82 U/L (40-110); Anion Gap 19 mmol/L (10-20); BUN (Urea Nitrogen) 35 mg/dL (9.8-20.1); Base Excess-Venous 3.9 mmol/L (-2.0 to 3.0); Bicarbonate (HCO3v) 28.3 mmol/L (22.0-28.0); Bilirubin, Total 0.3 mg/dL (0.2-1.2); CO2 Tension (PvCO2) 40.6 mmHg (42.0-51.0); Calc. Creatinine Clearance 0 mL/min (70-130); Calcium 9.5 mg/dL (7.8-10.44); Calcium, Ionized 1.04 mmol/L (1.15-1.33); Carbon Dioxide 22 mmol/L (23-31); Chloride 95 mmol/L (98-107); Estimated GFR 42; Globulin 3.7 g/dL (2.4-3.5); Glucose 123 mg/dL (83-110); Hemoglobin - Calc 11.3 g/dL (12.0-16.0); Potassium 4.8 mmol/L (3.5-5.1); Potassium 4.9 mmol/L (3.5-5.1); Protein, Total 7.5 g/dL (5.8-8.1); Sodium 131 mmol/L (136-145); Sodium 132 mmol/L (138-145); T. Carbon Dioxide 29.5 mmol/L (22.0-28.0); vO2 Saturation-calc 67.1 % (60.0-85.0)
[2024-09-22] MEDS ORDERED: Azithromycin 250 MG TAB ONE (13:16)
[2024-09-22] MEDS ORDERED: cefTRIAXone (ROCEPHIN) 2 GM VIAL ONE ×2 (13:16→21:09)
[2024-09-22] MEDS ORDERED: Sodium Chloride 0.9% 100 ML ONE (13:16)
[2024-09-22 13:24] LABS: Bilirubin Negative (Negative); Blood, Urine Small (Negative); Clarity Slightly Cloudy (Clear); Glucose, Urine (Dipstick) Negative (Negative); Ketone, Urine Negative (Negative); Leukocyte Small (Negative); Nitrite Positive (Negative); Protein, Urine (Dipstick) 100 mg/dL (Neg-Trace); Specific Gravity, Urine 1.025 (1.005-1.030); Urobilinogen 0.2 mg/dL (Less than 2)
[2024-09-22 13:30] LABS: Bacteria/HPF 4+ HPF (None Seen); CAUTI Indications for Culture Dysuria,urgency,freq; RBC/HPF 0-3 HPF (0-3); Squamous Epithelial 0-3 HPF (0-3)
[2024-09-22 13:32] LABS: Urine Culture Reflex Yes Yes
[2024-09-22] MEDS ORDERED: Vancomycin HCl 750 MG VIAL ONE (13:46)
[2024-09-22] MEDS ORDERED: Ondansetron PF 4 MG/2 ML Vial ONE (20:39)
[2024-09-22] MEDS ORDERED: Acetaminophen 325 MG TAB ONE (20:39)
== END 2024-09-23 00:12 | disposition short-term general hospital (02) ==
LOC: BURERS 12:26
DX: N39.0 Urinary tract infection, site not specified (principal); J20.9 Acute bronchitis, unspecified; N17.9 Acute kidney failure, unspecified; E86.0 Dehydration; E11.9 Type 2 diabetes mellitus without complications; I10 Essential (primary) hypertension; E78.5 Hyperlipidemia, unspecified
CPT/HCPCS: 71045; 80053; 81001; 82330; 82435; 82803; 83605; 84132; 84295; 85014; 85025; 87040; 87077; 87086; 87186; 94760; 96361; 96365; 96375; 99285; J0696; J3370; J2405